=== PATIENT | female | born 1985 | race Caucasian/White ===

== ENCOUNTER 2017-11-13 18:32 | Outpatient (CLI) | payer MEDICAID ==
[2017-11-13 20:32] LABS: ADD MAN DIFF? NO
[2017-11-13 20:35] LABS: WHITE BLOOD COUNT 8.9 10^3/ul (4.8-10.8)
[2017-11-13 20:35] LABS: BASOPHILS % 0.3 % (0.0-2.0); EOSINOPHILS % 0.4 % (0.0-7.0); HEMATOCRIT 35.8 % (37.0-47.0); HEMOGLOBIN 12.1 g/dl (12.0-16.0); LYMPHOCYTES # 1.2 10^3/ul (0.8-2.9); LYMPHOCYTES % 13.7 % (15.0-51.0); MEAN CORPUSCULAR HEMOGLOBIN 30.1 pg (29.0-33.0); MEAN CORPUSCULAR HGB CONC 33.8 g/dl (32.0-37.0); MEAN CORPUSCULAR VOLUME 89.1 fl (82.0-101.0); MEAN PLATELET VOLUME 11.5 fl (7.4-10.4); MONOCYTE # 0.6 10^3/ul (0.3-0.9); MONOCYTES % 7.1 % (0.0-11.0); NEUTROPHILS % 77.8 % (39.0-77.0); PLATELET COUNT 135 10^3/UL (140-415); RED BLOOD COUNT 4.02 10^6/ul (4.20-5.40); RED CELL DISTRIBUTION WIDTH 13.6 % (11.5-14.5)
[2017-11-13] MEDS: LACTATED RINGER'S 500 ML IV ×3 (20:38→23:19)
[2017-11-13 20:39] LABS: ADD UMIC NO; UR ASCORBIC ACID NEGATIVE (NEGATIVE); UR BILIRUBIN (Dip) NEGATIVE (NEGATIVE); UR BLOOD (Dip) NEGATIVE (NEGATIVE); UR CLARITY CLEAR (CLEAR); UR COLOR YELLOW (YELLOW); UR GLUCOSE (Dip) NEGATIVE (NEGATIVE); UR KETONES (Dip) NEGATIVE (NEGATIVE); UR LEUKOCYTE ESTERASE (Dip) NEGATIVE Leu/ul (NEGATIVE); UR NITRITE (Dip) NEGATIVE (NEGATIVE); UR SPECIFIC GRAVITY (Dip) 1.008 (1.003-1.030); UR TOTAL PROTEIN (Dip) NEGATIVE (NEGATIVE); UR UROBILINOGEN (Dip) NEGATIVE (NEGATIVE)
[2017-11-13 20:52] LABS: ALANINE AMINOTRANSFERASE 28 IU/L (13-69); ALBUMIN 3.5 g/dl (3.3-4.9); ALBUMIN/GLOBULIN RATIO 1.09; ALKALINE PHOSPHATASE 242 IU/L (42-121); ANION GAP 16 (8-16); ASPARTATE AMINO TRANSFERASE 21 IU/L (15-46); BILIRUBIN,INDIRECT 0.3 mg/dl (0-1.1); BILIRUBIN,TOTAL 0.3 mg/dl (0.2-1.3); BLOOD UREA NITROGEN 7 mg/dl (7-20); CALCIUM 8.4 mg/dl (8.4-10.2); CARBON DIOXIDE 21 mmol/L (21-31); CHLORIDE 105 mmol/L (97-110); CREATININE 0.55 mg/dl (0.44-1.00); GLUCOSE 92 mg/dl (70-220); POTASSIUM 3.8 mmol/L (3.5-5.1); SODIUM 138 mmol/L (135-144); TOTAL PROTEIN 6.7 g/dl (6.1-8.1)
[2017-11-13] MEDS: ACETAMINOPHEN 325 MG TAB PO (23:18)
== END 2017-11-14 00:08 | disposition home or self-care (01) ==
LOC: OBT 18:32 → L-D 18:32
DX: O26.893 Other specified pregnancy related conditions, third trimester (principal); R51 Headache; Z3A.38 38 weeks gestation of pregnancy
CPT/HCPCS: 76818; 80053; 81003; 85025; 87086; 96360; 96361

== ENCOUNTER 2017-11-23 09:25 | Inpatient (IN) | payer MEDICAID ==
[2017-11-23] MEDS: LACTATED RINGER'S 1,000 ML IV ×3 (10:16→18:47)
[2017-11-23 10:25] LABS: ADD MAN DIFF? NO
[2017-11-23 10:28] LABS: BASOPHILS % 0.3 % (0.0-2.0); EOSINOPHILS # 0.1 10^3/ul (0.0-0.5); EOSINOPHILS % 0.6 % (0.0-7.0); HEMATOCRIT 40.1 % (37.0-47.0); HEMOGLOBIN 13.8 g/dl (12.0-16.0); LYMPHOCYTES # 2.2 10^3/ul (0.8-2.9); LYMPHOCYTES % 17.5 % (15.0-51.0); MEAN CORPUSCULAR HEMOGLOBIN 30.1 pg (29.0-33.0); MEAN CORPUSCULAR HGB CONC 34.4 g/dl (32.0-37.0); MEAN CORPUSCULAR VOLUME 87.4 fl (82.0-101.0); MEAN PLATELET VOLUME 11.8 fl (7.4-10.4); MONOCYTE # 0.5 10^3/ul (0.3-0.9); MONOCYTES % 4.3 % (0.0-11.0); NEUTROPHIL # 9.6 10^3/ul (1.6-7.5); NEUTROPHILS % 76.6 % (39.0-77.0); PLATELET COUNT 205 10^3/UL (140-415); RED BLOOD COUNT 4.59 10^6/ul (4.20-5.40)
[2017-11-23 10:28] LABS: WHITE BLOOD COUNT 12.5 10^3/ul (4.8-10.8)
[2017-11-23] MEDS ORDERED: CARBOPROST 250 MCG INJ IM (10:30)
[2017-11-23] MEDS ORDERED: BUTORPHANOL 2 MG INJ IV ×2 (10:30)
[2017-11-23] MEDS ORDERED: LIDOCAINE 1% (MPF) 30 ML INJ INJ (10:30)
[2017-11-23] MEDS ORDERED: IBUPROFEN 600 MG TAB PO (10:30)
[2017-11-23] MEDS ORDERED: METHYLERGONOVINE 0.2 MG INJ IM (10:30)
[2017-11-23] MEDS ORDERED: OXYTOCIN 30 UNITS/LR 500 ML IV ×4 (10:30)
[2017-11-23] MEDS ORDERED: MISOPROSTOL 200 MCG TAB PR (10:30)
[2017-11-23] MEDS: DINOPROSTONE 10 MG VAG SUPP VAG (10:50)
[2017-11-23 11:17] LABS: HEPATITIS B SURFACE ANTIGEN NEGATIVE (NEGATIVE)
[2017-11-23 11:39] LABS: PT RATIO 0.9
[2017-11-23] MEDS ORDERED: PROMETHAZINE/CODEINE 5ML CUP PO (12:00)
[2017-11-23 12:06] LABS: INR 0.85; PARTIAL THROMBOPLASTIN TIME 27.5 Sec (25.0-35.0); PROTIME 11.7 Sec (11.9-14.9)
[2017-11-23] MEDS ORDERED: FENTAnyl 2MCG/ML-ROPIV 0.2% 100 ML (18:14)
[2017-11-23] MEDS: FENTAnyl 2MCG/ML-ROPIV 0.2% 100 ML BAG EPI ×2 (18:47→18:48)
[2017-11-23] MEDS ORDERED: DIPHENHYDRAMINE 50 MG INJ IV (19:00)
[2017-11-23] MEDS ORDERED: NALOXONE (0.4 MG/ML) INJ IV (19:00)
[2017-11-23] MEDS ORDERED: ONDANSETRON 4 MG INJ IV (19:00)
[2017-11-23 20:09] LABS: RAPID PLASMA REAGIN NONREACTIVE (NR)
[2017-11-23] MEDS: OXYTOCIN 30 UNITS/LR 500 ML IV (23:36)
[2017-11-24] MEDS: LACTATED RINGER'S 1,000 ML IV ×4 (00:43→21:50)
[2017-11-24] MEDS: FENTAnyl 2MCG/ML-ROPIV 0.2% 100 ML BAG EPI (02:26)
[2017-11-24] MEDS ORDERED: CEFAZOLIN 2 GM/50 ML (PMX) 50 ML IVPB (07:00)
[2017-11-24] MEDS ORDERED: morphine SULFATE/PF (10 MG/10 ML) INJ (07:23)
[2017-11-24] MEDS ORDERED: FENTAnyl 50 MCG/ML VIAL (07:23)
[2017-11-24] MEDS ORDERED: METOCLOPRAMIDE 10 MG INJ (07:24)
[2017-11-24] MEDS ORDERED: OXYTOCIN 10 UNIT INJ ×2 (07:24→07:54)
[2017-11-24] MEDS ORDERED: PHENYLephrine (100 MCG/ML) 5ML SYG (07:24)
[2017-11-24] MEDS ORDERED: NA PHOSPHATE/BIPHOS 133 ML ENEMA PR (07:30)
[2017-11-24] MEDS ORDERED: OXYTOCIN 30 UNITS/LR 500 ML IV (07:30)
[2017-11-24] MEDS ORDERED: METHYLERGONOVINE 0.2 MG TAB PO (07:30)
[2017-11-24] MEDS ORDERED: HYDROCODONE/APAP (5/325) TAB PO (07:30)
[2017-11-24] MEDS: CEFAZOLIN 2 GM/50 ML (PMX) 50 ML IVPB ×2 (07:30→16:12)
[2017-11-24] MEDS ORDERED: MEPERIDINE 25 MG INJ IV (08:00)
[2017-11-24] MEDS ORDERED: morphine 4 MG/ML VIAL IV (08:00)
[2017-11-24] MEDS ORDERED: LABETALOL HCL 20MG INJ IV (08:00)
[2017-11-24] MEDS ORDERED: ONDANSETRON 4 MG INJ IV (08:00)
[2017-11-24] MEDS ORDERED: EPHEDrine SULFATE 50 MG/5 ML SYG IV (08:00)
[2017-11-24] MEDS ORDERED: FENTAnyl 50 MCG/ML VIAL IV ×2 (08:00)
[2017-11-24] MEDS ORDERED: ALBUTEROL 0.083% (NEB) 2.5 MG/3 ML AMP HHN (08:00)
[2017-11-24] MEDS ORDERED: hydrALAzine 20 MG INJ IV (08:00)
[2017-11-24] MEDS ORDERED: morphine 2 MG INJ IV (08:00)
[2017-11-24] MEDS ORDERED: IPRATROPIUM (NEB) 0.5 MG/2.5 ML AMP HHN (08:00)
[2017-11-24] MEDS ORDERED: NALOXONE (0.4 MG/ML) INJ IV (08:00)
[2017-11-24] MEDS ORDERED: NALBUPHINE HCL (10 MG/1 ML) INJ IV (08:00)
[2017-11-24] MEDS ORDERED: HYDROmorphONE (0.2 MG/ML) 10ML SYG IV ×3 (08:00)
[2017-11-24] MEDS ORDERED: DIPHENHYDRAMINE 50 MG INJ IV ×2 (08:00)
[2017-11-24] MEDS ORDERED: TRIMETHOBENZAMIDE 100 MG/ML VIAL IM ×2 (08:00)
[2017-11-24] MEDS: METHYLERGONOVINE 0.2 MG INJ IM (08:15)
[2017-11-24] MEDS: CARBOPROST 250 MCG INJ IM (08:15)
[2017-11-24] MEDS: MISOPROSTOL 200 MCG TAB PR (08:16)
[2017-11-24 08:27] LABS: AADO2 Cord Arterial 62.9 mmHg; Arterial Cord Blood pCO2 60.7 mmHG (25-50); CBA Base Excess -3.8 mmol/L; CBA COHb 0.7 %; CBA Oxygen Sat 21.7 mmHG; CBA Total Hemglobin 14.2 g/dl; Cord Blood Arterial pO2 14.1 mmHG (15.0-45.0); Fraction OxyHgb Cord Arterial 21.2 %; MODE ROOM AIR; MetHgb Cord Arterial 1.7 %; Sample Type CBA; Site CORD
[2017-11-24] MEDS: SENNA/DOCUSATE NA (8.6MG/50MG) TAB PO ×2 (09:00→21:50)
[2017-11-24] MEDS: OXYTOCIN 30 UNITS/LR 500 ML IV (09:01)
[2017-11-24] MEDS: KETOROLAC 30 MG INJ IV ×4 (09:49→19:30)
[2017-11-24] MEDS ORDERED: MEPERIDINE 100 MG INJ (10:24)
[2017-11-24] MEDS: ONDANSETRON 4 MG INJ IV (10:37)
[2017-11-24] MEDS: FENTAnyl 50 MCG/ML VIAL IV ×2 (11:04→11:30)
[2017-11-24] MEDS: IBUPROFEN 800 MG TAB PO (19:25)
[2017-11-25] MEDS: CEFAZOLIN 2 GM/50 ML (PMX) 50 ML IVPB (00:23)
[2017-11-25] MEDS: LANOLIN 7 GM TUBE TOP (00:24)
[2017-11-25] MEDS: KETOROLAC 30 MG INJ IV ×4 (00:24→20:04)
[2017-11-25] MEDS: LACTATED RINGER'S 1,000 ML IV ×3 (05:49→23:21)
[2017-11-25 08:21] LABS: ADD MAN DIFF? NO
[2017-11-25 08:32] LABS: WHITE BLOOD COUNT 10.2 10^3/ul (4.8-10.8)
[2017-11-25 08:32] LABS: BASOPHILS % 0.2 % (0.0-2.0); EOSINOPHILS % 0.4 % (0.0-7.0); HEMATOCRIT 26.9 % (37.0-47.0); HEMOGLOBIN 9.1 g/dl (12.0-16.0); LYMPHOCYTES # 1.7 10^3/ul (0.8-2.9); LYMPHOCYTES % 16.2 % (15.0-51.0); MEAN CORPUSCULAR HEMOGLOBIN 30.2 pg (29.0-33.0); MEAN CORPUSCULAR HGB CONC 33.8 g/dl (32.0-37.0); MEAN CORPUSCULAR VOLUME 89.4 fl (82.0-101.0); MEAN PLATELET VOLUME 11.3 fl (7.4-10.4); MONOCYTE # 0.7 10^3/ul (0.3-0.9); NEUTROPHIL # 7.7 10^3/ul (1.6-7.5); NEUTROPHILS % 75.8 % (39.0-77.0); PLATELET COUNT 174 10^3/UL (140-415); RED BLOOD COUNT 3.01 10^6/ul (4.20-5.40); RED CELL DISTRIBUTION WIDTH 13.2 % (11.5-14.5)
[2017-11-25] MEDS: SENNA/DOCUSATE NA (8.6MG/50MG) TAB PO ×2 (09:19→21:00)
[2017-11-25] MEDS: BISACODYL (EC) 5 MG TAB PO (13:55)
[2017-11-25] MEDS: INFLUENZA VIRUS VACCINE 0.5 ML SYG IM* (13:58)
[2017-11-25] MEDS: HYDROCODONE/APAP (5/325) TAB PO (18:29)
[2017-11-26] MEDS: KETOROLAC 30 MG INJ IV ×2 (03:30→09:42)
[2017-11-26] MEDS: LACTATED RINGER'S 1,000 ML IV (07:21)
[2017-11-26] MEDS: SENNA/DOCUSATE NA (8.6MG/50MG) TAB PO ×2 (09:00→20:38)
[2017-11-26] MEDS: IBUPROFEN 800 MG TAB PO ×2 (16:11→21:37)
[2017-11-27] MEDS: IBUPROFEN 800 MG TAB PO ×2 (05:38→13:55)
[2017-11-27] MEDS: DIPHTH/TET/ACEL PERTUSS (ADULT) 0.5 ML VIAL IM* (09:03)
[2017-11-27] MEDS: MEASLES,MUMPS,RUBELLA VACCINE INJ SC* (09:04)
[2017-11-27] MEDS: SENNA/DOCUSATE NA (8.6MG/50MG) TAB PO (09:20)
== END 2017-11-27 14:25 | disposition home or self-care (01) | DRG 766 ==
LOC: L-D 09:25 → PP1 11-24 12:08
PROVIDERS: Obstetrics & Gynecology
PROC: 3E0P7VZ Introduction of Hormone into Female Reproductive, Via Natural or Artificial Opening (ICD-10-PCS; 2017-11-23 09:15)
PROC: 10D00Z1 Extraction of Products of Conception, Low, Open Approach (ICD-10-PCS; principal; 2017-11-24 07:00)
DX: O36.63X0 Maternal care for excessive fetal growth, third trimester, not applicable or unspecified (principal); O62.1 Secondary uterine inertia; Z37.0 Single live birth; Z3A.40 40 weeks gestation of pregnancy
CPT/HCPCS: 36600; 62319; 76816; 82803; 85025; 85610; 85730; 86592; 86900; 86901; 87340; 90686; 90715; 94760; 99464